=== PATIENT | male | born 2000 | race Two or more races ===

== ENCOUNTER 2020-11-21 17:43 | Emergency (ER) | payer BC ==
[~2020-11-21] VITALS: Ht 185.4 cm; Wt 65.9 kg
[2020-11-21 17:45] VITALS: BP 128/84
--- NOTE | 2020-11-21 18:13 | NUR ---
PT TO XR
[2020-11-21 18:33] LABS: BASOPHILS % (AUTO) 1 % (0-1); EOSINOPHILS % (AUTO) 1 % (1-7); HCT (SEDRATE) 46.1 % (39.2-51.8); LYMPHOCYTES % (AUTO) 46 % (22-44); MEAN CORPUSCULAR HEMOGLOBIN 28.4 pg (27.5-34.5); MEAN CORPUSCULAR HGB CONC 33.9 g/dL (33.2-36.2); MEAN PLATELET VOLUME 7.8 fL (7.4-10.4); MONOCYTES % (AUTO) 8 % (2-9); NEUTROPHILS % (AUTO) 45 % (42-75); PLATELET COUNT 219 x10^3/uL (130-400); RED BLOOD COUNT 5.54 x10^6/uL (4.38-5.82); RED CELL DISTRIBUTION WIDTH 13.3 % (9.4-14.8)
[2020-11-21 18:41] LABS: ALANINE AMINOTRANSFERASE 37 U/L (12-78); ALBUMIN 3.9 g/dL (3.4-5.0); ANION GAP 7 mmol/L (5-15); CALCIUM 8.5 mg/dL (8.5-10.1); CHLORIDE 106 mmol/L (98-107)
[2020-11-21 18:42] LABS: C-REACTIVE PROTEIN, QUANT < 0.02 mg/dL (0.02-0.49)
[2020-11-21 18:43] LABS: ALKALINE PHOSPHATASE 88 U/L (45-117); BILIRUBIN,TOTAL 0.7 mg/dL (0.2-1.0); TOTAL PROTEIN 8.3 g/dL (6.4-8.2)
--- NOTE | 2020-11-21 18:59 | NUR ---
REPORT GIVEN TO CARLOS
--- NOTE | 2020-11-21 19:00 | NUR ---
REPORT RECIEED FROM HARLAN FUNEZ
--- NOTE | 2020-11-21 19:12 | NUR ---
PATIENT RESTING ON GURNEY, STATES CHEST PAIN REMAINS "ABOUT THE SAME", VSS, FATHER REMAINS AT BEDSIDE.
[2020-11-21 19:44] LABS: TROPONIN I < 0.015 ng/mL (0.000-0.045)
--- NOTE | 2020-11-21 20:27 | NUR ---
Patient given discharge instructions and they have confirmed that they understand the instructions. Patient ambulatory with steady gait. NAD, all questions answered appropriately, denies additional needs at this time. No personal belongings left in room after discharge.
== END 2020-11-21 20:31 | disposition home or self-care (01) ==
LOC: ED 18:17
DX: R07.89 Other chest pain (principal); R00.1 Bradycardia, unspecified
CPT/HCPCS: 36415; 71045; 80053; 84484; 85025; 85651; 86140; 93005; 99285